=== PATIENT | male | born 1955 | race Caucasian/White ===

== ENCOUNTER 2023-06-02 17:41 | Observation (INO) | payer MEDICARE ==
[2023-06-02] MEDS ORDERED: Ondansetron ODT 4 MG TAB PO PRN (21:18)
[2023-06-02] MEDS ORDERED: Glucagon 1 MG/ML KIT IM PRN (21:18)
[2023-06-02] MEDS ORDERED: Ondansetron PF 4 MG/2 ML Vial IVP PRN (21:18)
[2023-06-02] MEDS ORDERED: Dextrose 5% in Water 1,000 ML IV PRN (21:18)
[2023-06-02] MEDS ORDERED: Dextrose 50% Abboject 50 ML SYRINGE SLOW IVP PRN (21:18)
[2023-06-02] MEDS ORDERED: Nitroglycerin 0.4 MG TAB (25 Tab Bottle) SL PRN (21:18)
[2023-06-02] MEDS ORDERED: Acetaminophen 325 MG TAB PO PRN (21:18)
[2023-06-02] MEDS ORDERED: Insulin Regular 300 UNITS/3 ML VIAL SC PRN ×2 (21:18)
[2023-06-02 22:07] VITALS: BMI 31.0
[2023-06-02 22:13] LABS: Troponin I 0.038 ng/mL (< 0.028)
[2023-06-02 22:15] LABS: Magnesium 1.7 mg/dL (1.6-2.6); Phosphorus 2.7 mg/dL (2.3-4.7)
[2023-06-03 05:13] LABS: #Basophils 0.1 thou/uL (0.0-0.2); #Eosinphils 0.1 thou/uL (0.0-0.7); #Monocytes 0.8 thou/uL (0.11-0.59); #Neutrophils 5.6 thou/uL (1.40-6.50); %Basophils 0.6 % (0.0-1.0); %Eosinophils 1.8 % (0.0-10.0); %Lymphocytes 16.9 % (21.0-51.0); %Monocytes 10.1 % (0.0-10.0); %Neutrophils 70.3 % (42.0-75.0); Hematocrit 39.8 % (42.0-52.0); Hemoglobin 13.2 g/dL (14.0-18.0); Mean Corpuscular HGB CONC 33.2 g/dL (32.0-36.0); Mean Corpuscular Hemoglobin 26.8 pg (27.0-31.0); Mean Corpuscular Volume 80.7 fl (78.0-98.0); Mean Platelet Volume 10.1 fL (7.4-10.4); Platelet Count 245 10x3/uL (130-400); RBC Distribution Width 15.8 % (11.5-14.5); Red Blood Cell (RBC) Count 4.93 mill/uL (4.70-6.10)
[2023-06-03 05:39] LABS: Anion Gap 10 mmol/L (10-20); BUN (Urea Nitrogen) 12 mg/dL (8.4-25.7); Calc. Creatinine Clearance 123 mL/min (70-130); Calcium 8.4 mg/dL (7.8-10.44); Carbon Dioxide 25 mmol/L (23-31); Cardiac Risk 5.5 (Less than 4.5); Chloride 108 mmol/L (98-107); Cholesterol 165 mg/dl (< 200 Desired); Estimated GFR 96; Glucose 114 mg/dL (80-115); HDL Cholesterol 30 mg/dL (>60 Neg Risk); LDL Cholesterol, Calculated 111 mg/dL; Potassium 3.2 mmol/L (3.5-5.1); Sodium 140 mmol/L (136-145); Triglycerides 120 mg/dL (Less than 150)
[2023-06-03] MEDS ORDERED: Potassium Chloride 20 MEQ TAB PO SCH (07:45)
[2023-06-03] MEDS ORDERED: Aspirin Chewable 81 MG TAB PO SCH (09:00)
[2023-06-03] MEDS ORDERED: ADENOSINE 60 MG/20 ML SDV ONE (12:40)
[2023-06-03 15:59] VITALS: BP 147/68; TEMP 97.4
== END 2023-06-03 18:12 | disposition home or self-care (01) ==
LOC: 2SW 20:12
PROVIDERS: ADMIT Family Medicine; ATTEND Internal Medicine
DX: R07.9 Chest pain, unspecified (principal); E11.9 Type 2 diabetes mellitus without complications; I10 Essential (primary) hypertension; E78.5 Hyperlipidemia, unspecified; D53.9 Nutritional anemia, unspecified; E87.6 Hypokalemia; E83.42 Hypomagnesemia; M10.9 Gout, unspecified; Z79.899 Other long term (current) drug therapy; Z79.84 Long term (current) use of oral hypoglycemic drugs; Z90.89 Acquired absence of other organs; Z98.890 Other specified postprocedural states; Z88.5 Allergy status to narcotic agent
CPT/HCPCS: 78452; 80048; 80061; 82962 ×2; 83735; 84100; 84484; 85025; 93017; 94760; A9502; G0378 ×2; 36415; 36416; J0153

== ENCOUNTER 2023-10-12 18:18 | Inpatient (IN) | payer MEDICARE ==
[~2023-10-12 18:18] MED LIST: Iopamidol-370 76% 500 ML MDV (1 ML CHARGE) ONE
[2023-10-12 18:54] LABS: #Basophils 0.04 10x3/uL (0.0-0.2); %Basophils 0.3 % (0.0-1.0); %Eosinophils 0.3 % (0.0-10.0); %Lymphocytes 4.8 % (21.0-51.0); %Monocytes 4.8 % (0.0-10.0); %Neutrophils 89.2 % (42.0-75.0); Hematocrit 43.1 % (42.0-52.0); Hemoglobin 14.4 g/dL (14.0-18.0); Mean Corpuscular HGB CONC 33.4 g/dL (32.0-36.0); Mean Corpuscular Hemoglobin 27.5 pg (27.0-31.0); Mean Corpuscular Volume 82.3 fL (78.0-98.0); Mean Platelet Volume 10.1 fL (7.4-10.4); Platelet Count 181 10x3/uL (130-400); Red Blood Cell (RBC) Count 5.24 mill/uL (4.70-6.10)
[2023-10-12 19:14] LABS: Troponin I 0.012 ng/mL (< 0.028)
[2023-10-12 19:15] LABS: ALT (SGPT) 25 U/L (8-55); AST (SGOT) 32 U/L (5-34); Albumin 3.5 g/dL (3.4-4.8); Alkaline Phosphatase 34 U/L (40-110); Anion Gap 13 mmol/L (10-20); BUN (Urea Nitrogen) 24 mg/dL (8.4-25.7); Bilirubin, Total 1.1 mg/dL (0.2-1.2); Calc. Creatinine Clearance 0 mL/min (70-130); Carbon Dioxide 22 mmol/L (23-31); Chloride 111 mmol/L (98-107); Estimated GFR 79; Globulin 2.6 g/dL (2.4-3.5); Glucose 101 mg/dL (80-115); Potassium 4.3 mmol/L (3.5-5.1); Protein, Total 6.1 g/dL (5.8-8.1); Sodium 142 mmol/L (136-145)
[2023-10-12 20:08] LABS: INR-International Normal Ratio 1.2; PTT 30.8 sec (22.9-36.1); Prothrombin Time 14.9 sec (12.0-14.7)
[2023-10-12] MEDS ORDERED: Acetaminophen 325 MG TAB PO PRN (22:58)
[2023-10-12] MEDS ORDERED: Ondansetron ODT 4 MG TAB PO PRN (22:58)
[2023-10-12] MEDS ORDERED: Ondansetron PF 4 MG/2 ML Vial IVP PRN (22:58)
[2023-10-13] MEDS: HYDROcodone/Acetaminophen 5/325 mg Tablet PO PRN (00:19)
[2023-10-13] MEDS: Morphine 2 MG/ML VIAL SLOW IVP PRN (01:11)
[2023-10-13] MEDS: diphenhydrAMINE 50 MG/ML VIAL IVP SCH (01:12)
[2023-10-13 01:35] VITALS: BMI 27.6
[2023-10-13 06:43] LABS: #Basophils 0.04 10x3/uL (0.0-0.2); %Basophils 0.4 % (0.0-1.0); %Eosinophils 0.6 % (0.0-10.0); %Monocytes 8.7 % (0.0-10.0); Hematocrit 41.5 % (42.0-52.0); Hemoglobin 13.9 g/dL (14.0-18.0); Mean Corpuscular HGB CONC 33.5 g/dL (32.0-36.0); Mean Corpuscular Hemoglobin 26.7 pg (27.0-31.0); Mean Corpuscular Volume 79.8 fL (78.0-98.0); Mean Platelet Volume 10.5 fL (7.4-10.4); Platelet Count 175 10x3/uL (130-400); RBC Distribution Width 16.8 % (11.5-14.5)
[2023-10-13 06:48] LABS: INR-International Normal Ratio 1.2; Prothrombin Time 14.8 sec (12.0-14.7)
[2023-10-13 06:49] LABS: PTT 32.2 sec (22.9-36.1)
[2023-10-13 07:11] LABS: Anion Gap 14 mmol/L (10-20); BUN (Urea Nitrogen) 18 mg/dL (8.4-25.7); Calc. Creatinine Clearance 102 mL/min (70-130); Calcium 8.9 mg/dL (7.8-10.44); Carbon Dioxide 25 mmol/L (23-31); Chloride 109 mmol/L (98-107); Estimated GFR 94; Glucose 85 mg/dL (80-115); Potassium 3.8 mmol/L (3.5-5.1); Sodium 144 mmol/L (136-145)
[2023-10-13] MEDS: Acetaminophen/Codeine 30-300mg Tablet PO PRN (08:37)
[2023-10-13] MEDS: Acetaminophen 325 MG TAB PO SCH (08:37)
[2023-10-13] MEDS: Senokot S 8.6-50 MG TAB PO SCH (08:37)
[2023-10-13] MEDS: Polyethylene Glycol 3350 17 GM Packet PO SCH (08:37)
[2023-10-13] MEDS: Gabapentin 300 MG CAP PO SCH (21:36)
[2023-10-14] MEDS ORDERED: Iopamidol-370 76% 500 ML MDV (1 ML CHARGE) ONE (13:24)
[2023-10-19] MEDS: Amlodipine 10 MG TAB PO SCH (10:26)
[2023-10-19 13:32] VITALS: BMI 27.2
[2023-10-20] MEDS ORDERED: Lidocaine 1% (PF) 30 ML VIAL ONE (14:05)
[2023-10-20] MEDS ORDERED: Heparin 10,000 UNITS/ 10 ML VIAL ONE (14:05)
[2023-10-20] MEDS ORDERED: Isoproterenol 0.2 MG/1 ML AMP ONE (14:05)
[2023-10-20] MEDS ORDERED: Midazolam HCl 2 mg/2 ml Vial ONE ×2 (14:51→15:13)
[2023-10-20] MEDS ORDERED: fentaNYL 50 mcg/mL 1 mL Vial ONE (14:51)
[2023-10-20] MEDS ORDERED: Adenosine 90 mg (30 mL) VIAL ONE (15:30)
[2023-10-20] MEDS ORDERED: Adenosine 6 mg (2 mL) VIAL ONE (15:30)
[2023-10-20] MEDS: Tamsulosin HCl 0.4 MG CAP PO SCH (21:41)
[2023-10-21] MEDS: Finasteride 5 MG TAB PO SCH (15:00)
[2023-10-22] MEDS: Finasteride 5 MG TAB PO SCH (08:09)
[2023-10-22 11:46] VITALS: BP 102/60; TEMP 98.4
== END 2023-10-22 14:30 | disposition home health service (06) | DRG 982 ==
LOC: ERS 18:18 → IMCU/EMU 21:57 → SURG A 10-13 19:45 → 2NO 10-16 16:02
PROVIDERS: ADMIT Surgery; ATTEND Surgery
PROC: 02583ZZ Destruction of Conduction Mechanism, Percutaneous Approach (ICD-10-PCS; principal; 2023-10-20)
PROC: 02K83ZZ Map Conduction Mechanism, Percutaneous Approach (ICD-10-PCS; 2023-10-20)
DX: S06.6XAA Traumatic subarachnoid hemorrhage with loss of consciousness status unknown, initial encounter (principal); I47.10 Supraventricular tachycardia, unspecified; S22.42XA Multiple fractures of ribs, left side, initial encounter for closed fracture; S22.029A Unspecified fracture of second thoracic vertebra, initial encounter for closed fracture; S22.039A Unspecified fracture of third thoracic vertebra, initial encounter for closed fracture; W18.30XA Fall on same level, unspecified, initial encounter; I10 Essential (primary) hypertension; E11.9 Type 2 diabetes mellitus without complications; Z79.899 Other long term (current) drug therapy; Z88.8 Allergy status to other drugs, medicaments and biological substances; I35.0 Nonrheumatic aortic (valve) stenosis; E78.5 Hyperlipidemia, unspecified; M10.9 Gout, unspecified; Z90.49 Acquired absence of other specified parts of digestive tract; Z98.890 Other specified postprocedural states; S43.102A Unspecified dislocation of left acromioclavicular joint, initial encounter; I49.1 Atrial premature depolarization
CPT/HCPCS: 26770; 36415; 36416; 70450; 70496; 70498; 71045; 71260; 72125; 74177; 80048; 80053; 83880; 84484; 85025; 85610; 85730; 86850; 86900; 86901; 93005; 93010; 93306; 93609; 93613; 93623; 93653; 93662; 99152; 99153; C1732; C1753; C1760; C1884; C1893; G0390; J0153; J1200; J1644; J2001; J2250; J2272; J3010; Q9967

== ENCOUNTER 2023-12-01 08:12 | Outpatient (CLI) | payer MEDICARE ==
[2023-12-01] MEDS ORDERED: Iopamidol 370 76% 100 ML VIAL ONE (09:05)
== END 2023-12-01 08:13 | disposition home or self-care (01) ==
LOC: CT 08:12
PROVIDERS: ATTEND Physician Assistant
DX: I71.60 Thoracoabdominal aortic aneurysm, without rupture, unspecified (principal); S22.42XD Multiple fractures of ribs, left side, subsequent encounter for fracture with routine healing; N28.9 Disorder of kidney and ureter, unspecified; I70.0 Atherosclerosis of aorta; J90 Pleural effusion, not elsewhere classified; J84.10 Pulmonary fibrosis, unspecified
CPT/HCPCS: 71275